=== PATIENT | male | born 2005 | race Caucasian/White ===

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

== ENCOUNTER 2023-11-29 21:01 | Emergency (ER) | payer OTHER ==
[2023-11-29 21:52] VITALS: RESP 18; TEMP 101
--- NOTE | 2023-11-29 22:13 | ED ---
General Adult HPI - General Chief complaint: Dental/Oral Stated complaint: Facial swelling, Dental Pain Time Seen by Provider: 11/29/23 22:01 Source: patient, RN notes reviewed, old records reviewed Mode of arrival: ambulatory Limitations: no limitations - History of Present Illness Initial comments: 18-year-old male presenting with left-sided facial swelling from suspected dental infection. Patient states he had a fractured tooth approximately 1 year ago and over the past 24 to 40 hours he developed swelling in the left lower jaw. Patient does have fever upon arrival but denies subjective fever or chills. Patient states otherwise he feels fine and only has minor pain. No difficulty swallowing or difficulty breathing. - Related Data Home Medications Medication Instructions Recorded Confirmed guanFACINE HCL [Intuniv] 2 mg PO DAILY 11/27/13 11/27/13 Previous Rx's Medication Instructions Recorded Amoxicillin/Potassium Clav 1 each PO Q12HR #10 tab 12/02/13 [Augmentin 500-125 Tablet] Amoxic-Pot Clav 875-125Mg 1 tab PO Q12HR 14 Days #28 tab 08/28/21 [Augmentin 875-125] risperiDONE [RisperDAL] 2 mg PO HS #30 tab 10/29/21 risperiDONE [RisperDAL] 2 mg PO DAILY 7 Days #7 tab 12/03/21 Amoxic-Pot Clav 875-125Mg 1 tab PO Q12HR 10 Days #20 tab 11/29/23 [Augmentin 875-125] Allergies Allergy/AdvReac Type Severity Reaction Status Date / Time No Known Allergies Allergy Verified 12/03/21 11:02 Review of Systems ROS Statement: Those systems with pertinent positive or pertinent negative responses have been documented in the HPI. ROS Other: All systems not noted in ROS Statement are negative. Past Medical History Past Medical History: No Reported History Additional Past Medical History / Comment(s): ADHD History of Any Multi-Drug Resistant Organisms: None Reported Past Surgical History: Appendectomy Past Anesthesia/Blood Transfusion Reactions: No Reported Reaction Past Psychological History: ADD/ADHD, Bipolar Smoking Status: Vaper Past Alcohol Use History: Occasional Past Drug Use History: Marijuana - Past Family History Brother(s) Additional Family Medical History / Comment(s): Terarets Sister(s) Additional Family Medical History / Comment(s): Hemoglobin C disorder General Exam Limitations: no limitations General appearance: alert, in no apparent distress Head exam: Present: atraumatic, normocephalic Eye exam: Present: normal appearance, PERRL ENT exam: Present: other (Left lower molar dental caries and fractured tooth. Associated swelling no drainable abscess.) Respiratory exam: Present: normal lung sounds bilaterally. Absent: respiratory distress Cardiovascular Exam: Present: regular rate, normal rhythm GI/Abdominal exam: Present: soft. Absent: distended, tenderness, guarding Course Vital Signs 11/29/23 21:45 Temperature 101 F H Pulse Rate 73 Respiratory 18 Rate Blood Pressure 158/57 O2 Sat by Pulse 99 Oximetry Medical Decision Making - Medical Decision Making Was pt. sent in by a medical professional or institution (, PA, STEWARD/STEWARDESS ROOM, urgent care, hospital, or long-term...) When possible be specific @ -No Did you speak to anyone other than the patient for history (EMS, parent, family, police, friend...)? What history was obtained from this source @ -No Did you review nursing and triage notes (agree or disagree)? Why? @ -I reviewed and agree with nursing and triage notes Were old charts reviewed (outside hosp., previous admission, EMS record, old EKG, old radiological studies, urgent care reports/EKG's, long-term records)? Report findings @ -No old charts were reviewed Differential Diagnosis: Dental caries, pulpitis, Christiano's angina, facial cellulitis EKG interpreted by me (3pts min.). @ -As above X-rays interpreted by me (1pt min.). @ -None done CT interpreted by me (1pt min.). @ -None done U/S interpreted by me (1pt. min.). @ -None done What testing was considered but not performed or refused? (CT, X-rays, U/S, labs)? Why? @ -None What meds were considered but not given or refused? Why? @ -None Did you discuss the management of the patient with other professionals (professionals i.e. , MINE, STEWARD/STEWARDESS ROOM, lab, RT, psych nurse, addiction social worker, apricot packer, teacher, global chief experience officer, comp field case manager)? Give summary @ -No Was smoking cessation discussed for >3mins.? @ -No Was critical care preformed (if so, how long)? @ -No Were there social determinants of health that impacted care today? How? (Homelessness, low income, unemployed, alcoholism, drug addiction, transportation, low edu. Level, literacy, decrease access to med. care, senior living, rehab)? @ -No Was there de-escalation of care discussed even if they declined (Discuss DNR or withdrawal of care, Hospice)? DNR status @ -No What co-morbidities impacted this encounter? (DM, HTN, Smoking, COPD, CAD, Cancer, CVA, ARF, Chemo, Hep., AIDS, mental health diagnosis, sleep apnea, morbid obesity)? @ -None Was patient admitted / discharged? Hospital course, mention meds given and route, prescriptions, significant lab abnormalities, going to OR and other pertinent info. @ -[Well-appearing 18-year-old male with previous history of left lower molar fracture and dental caries with facial swelling and associated dental infection. Patient started on Augmentin. He states he is attempting to find a dentist. Patient is otherwise well-appearing he will monitor symptoms closely and return as needed. Undiagnosed new problem with uncertain prognosis? @ -No Drug Therapy requiring intensive monitoring for toxicity (Heparin, Nitro, Insulin, Cardizem)? @ -No Were any procedures done? @ -No Diagnosis/symptom? @ -[Dental infection Acute, or Chronic, or Acute on Chronic? @ -Acute Uncomplicated (without systemic symptoms) or Complicated (systemic symptoms)? @ -[default Side effects of treatment? @ -No Exacerbation, Progression, or Severe Exacerbation? @ -No Poses a threat to life or bodily function? How? (Chest pain, [place], [place], pneumonia, PE, COPD, DKA, ARF, appy, cholecystitis, CVA, Diverticulitis, Homicidal, Suicidal, threat to staff... and all critical care pts) @Low risk at this time Disposition Clinical Impression: Dental caries, Acute pulpitis Disposition: HOME SELF-CARE Condition: Fair Instructions (If sedation given, give patient instructions): Toothache (ED), Dental Abscess (ED) Prescriptions: Amoxic-Pot Clav 875-125Mg [Augmentin 875-125] 1 tab PO Q12HR 10 Days #20 tab Is patient prescribed a controlled substance at d/c from ED?: No Referrals: None,Stated [Primary Care Provider] - 1-2 days Time of Disposition: 22:13
[2023-11-29] MEDS: ACETAMINOPHEN TAB 500 MG TAB PO STA (22:31)
[2023-11-29] MEDS: AMOXIC-POT CLAV 875-125MG 1 EACH TAB PO STA (22:32)
[2023-11-29 22:35] VITALS: BP 140/68; PULSE 70
== END 2023-11-29 22:36 | disposition home or self-care (01) ==
LOC: EC 21:01
CPT/HCPCS: 99282